=== PATIENT | female | born 1950 | race Caucasian/White ===

== ENCOUNTER 2021-12-30 11:17 | Outpatient (CLI) | payer MEDICARE, SELFPAY ==
[2021-12-30 22:22] LABS: Albumin* 4.3 g/dL (3.3-5.0); Chloride* 104 mmol/L (96-114)
[2021-12-30 22:23] LABS: Potassium* 4.3 mmol/L (3.6-5.1); Sodium* 139 mmol/L (135-149)
[2021-12-30 22:25] LABS: Alkaline Phosphatase* 41 U/L (40-150); Aspartate Amino Transferase* 24 U/L (12-35); Bilirubin Total* 0.5 mg/dL (0.1-1.5); Blood Urea Nitrogen* 8 mg/dL (7-30); Carbon Dioxide* 29 mmol/L (20-32); Cholesterol* 222 mg/dL (90-199); Creatinine* 0.6 mg/dL (0.5-1.5); Estimated Glomerular Filt Rate 95 ml/min; Total Protein* 6.7 g/dL (6.0-8.3)
[2021-12-30 22:26] LABS: Alanine Aminotransferase* 14 U/L (4-35); Calcium* 9.2 mg/dL (8.4-10.6); Glucose* 83 mg/dL (60-115); HDL Cholesterol* 84 mg/dL (>=50); LDL Cholesterol Calculated 122 mg/dL (<100); Triglycerides* 81 mg/dL (40-149)
[2021-12-30 23:05] LABS: Hepatitis C Virus Antibody* Negative (Negative)
== END 2021-12-30 11:18 | disposition home or self-care (01) ==
PROVIDERS: PCP Physician Assistant Medical; Visit Provider Family Medicine
DX: Z00.00 Encounter for general adult medical examination without abnormal findings (principal); Z13.6 Encounter for screening for cardiovascular disorders; F41.9 Anxiety disorder, unspecified; Z11.59 Encounter for screening for other viral diseases
CPT/HCPCS: 80053; 80061; 86803

== ENCOUNTER 2023-01-22 11:12 | Outpatient (CLI) | payer MEDICARE, SELFPAY | END 2023-01-22 11:13 | disposition home or self-care (01) | PROVIDERS: PCP Family Medicine; Visit Provider Family Medicine | DX: Z00.00 Encounter for general adult medical examination without abnormal findings (principal); Z13.6 Encounter for screening for cardiovascular disorders; Z11.59 Encounter for screening for other viral diseases | CPT/HCPCS: 80053; 80061; 86803 ==

== ENCOUNTER 2023-06-30 10:20 | Outpatient (CLI) | payer MEDICARE, SELFPAY | END 2023-06-30 10:21 | disposition home or self-care (01) | LOC: NFLDREF 07-01 07:11 | PROVIDERS: PCP Family Medicine; Referring Provider Family Medicine; Visit Provider Family Medicine | DX: R82.90 Unspecified abnormal findings in urine (principal) | CPT/HCPCS: 87086 ==

== ENCOUNTER 2023-08-11 11:15 | Outpatient (CLI) | payer MEDICARE, SELFPAY ==
--- NOTE | 2023-08-11 11:30 | MM_ITS ---
Patient: SANDHYA HERNANDEZ Facility:?[facility] Patient ID:?[id number] Site Patient ID:?[id number] Site :?[id number] Study:?XRay-Breast Bilateral 3D W/CAD-08/11/2023 11:43:38 AM Ordering Physician:Xin Banuelos Final Report: BILATERAL SCREENING MAMMOGRAM WITH COMPUTER-AIDED DETECTION AND TOMOSYNTHESIS TECHNIQUE: CC and MLO views were obtained. These mammographic images have been obtained using full-field digital technique. These mammographic images were interpreted with the benefit of computer-aided detection. Breast tomosynthesis was used in this interpretation. COMPARISON FILM: 08/06/22, 05/27/21, 12/16/19. FINDINGS: There are scattered areas of fibroglandular density. IMPRESSION: There is no radiographic evidence for malignancy. ASSESSMENT: BI-RADS Category 1: Negative RECOMMENDATION: Routine screening mammogram in 1 year. A lay language report of this examination will be provided to the patient. GREGORIA MUSA M.D. Diagnostic Radiologist [email or web address] [email or web address] Transcribed: 1:[address]/Dictated by: Gregoria Musa MD @ 08/11/2023 12:14:00 PM Signed by:?Gregoria Musa MD @08/11/2023 2:04:50 PM (Electronic Signature)
== END 2023-08-11 11:16 | disposition home or self-care (01) ==
LOC: MAMMO 11:16
PROVIDERS: PCP Family Medicine; Visit Provider Family Medicine
DX: Z12.31 Encounter for screening mammogram for malignant neoplasm of breast (principal)
CPT/HCPCS: 77063; 77067

== ENCOUNTER 2023-08-21 10:30 | Outpatient (CLI) | payer MEDICARE, SELFPAY ==
--- NOTE | 2023-08-21 11:00 | CRLHL7_ITS ---
For Patients: As a result of the Century Cures Act, medical imaging exams and procedure reports are released immediately into your electronic medical record. You may view this report before your referring provider. If you have questions, please contact your health care provider. Indication: Pleurodynia, 1 year back pain not improving. Lower right sided, possibly in rib Technique: CT Chest w/ 75cc Isovue-370 Please note that all CT scans at this facility use dose modulation, iterative reconstruction, and/or weight-based dosing when appropriate to reduce radiation dose to as low as reasonably achievable. Comparison: None Findings: Incidental punctate calcification within the spleen. Also incidental intrahepatic cysts. No calcified gallstones. No adrenal nodule. 4.5 cm hiatal hernia. No adenopathy in the mediastinum, ivan or axilla. No suspicious thyroid nodule. Calcified granuloma within the right upper lobe. Mild biapical pleural thickening. No pleural effusion. Dependent parenchymal densities noted. No suspicious pulmonary nodule. Intact ribcage. No vertebral body compression fracture. Impression: No fracture deformity. Moderate dependent scarring in both lung bases. This may be secondary to chronic reflux/aspiration as there is a 4.5 cm hiatal hernia. 4.5 cm hiatal hernia. Please note that all CT scans at this facility use dose modulation, iterative reconstruction, and/or weight-based dosing when appropriate to reduce radiation dose to as low as reasonably achievable. Dictated by Mahesh Rebolledo MD @ 08/21/2023 2:04:09 PM (Electronically Signed)
[2023-08-21 11:11] LABS: Creatinine* 0.7 mg/dL (0.5-1.5); Estimated Glomerular Filt Rate 91 ml/min
== END 2023-08-21 10:31 | disposition home or self-care (01) ==
PROVIDERS: PCP Family Medicine; Visit Provider Family Medicine
DX: R07.81 Pleurodynia (principal); K44.9 Diaphragmatic hernia without obstruction or gangrene; M85.80 Other specified disorders of bone density and structure, unspecified site
CPT/HCPCS: 36415; 71260; 82565; Q9967

== ENCOUNTER 2023-12-02 11:30 | Outpatient (RCR) | payer MEDICARE, SELFPAY ==
--- NOTE | 2023-09-29 12:36 | PT.OPE ---
[facility] PT [facility] Eval Start: 09/28/23 17:06 Freq: Status: Active Protocol: Document 09/29/23 10:25 LSL (Rec: 09/29/23 12:20 LSL [id number]) E-signed By Denise Brady PT Physical Therapy Outpatient Evaluation Insurance Information Insurance Name Medicare B,[employer] Insurance Information/Comments replacement plan PPO Medical Diagnosis chronic back pain Treating Diagnosis impaired ROM, pain, weakness Referring MD Vargas Subjective Subjective Pt. reports R thoracic pain for past 1.5+ years that is a constant ache and intermittently is a spasm and then it radiates downward. Activities that increase her pain are prolonged sitting, prolonged activities like crafting or working in the kitchen. Pt. likes to do jigsaw puzzles, crafting at the [employer]. She notices laying down on heat, using icy hot help decrease pain. I did do 3 sessions of yoga at the [employer] in the last month and that seems to have helped a little. I have noticed when I have diarrhea from IBS it can trigger some back pain and vice versa. PMH: Chest CT No fracture deformity, moderate dependent scarring in both lung bases. This may be secondary to chronic reflux/aspiration as there is a 4.5 cm hiatal hernia. 4.5 cm hiatal hernia. X-ray 05/14/23 Normal thoracic kyphosis. The vertebral body heights are maintained. The intervertebral disc spaces are preserved. Mild multilevel degenerative changes of the thoracic spine Pain Comments 07/07 average, 6 best Date of Last Physician Visit 09/25/23 Current Work Status Retired Precautions Weight Bearing Status Full Weight Bearing Therapy Limitations/Systems Review Not Limited Objective Range of Motion AROM - lumbar flexion 60%, B LF WNL, B rotation WNL, extension 60% with pain; thoracic B LF and rotation WNL with pain in R lower thoracic with L rotation Strength Cervical 5/5 throughout Shoulders - B hor abd 3+/5, B ER 4/5, B scaption 3+/5, lower trap R 3+/5, L 4-/5 Hips - R hip extension 4/5, L hip extension 4+/5 Trunk - extensors 4/5 in available ROM Palpation R thoracic paraspinals tight and tender, lower trap tight and tender, T7-10 CV joints tender Posture slight increase curvature at T -L junction Other/Pertinent Objective Joint Play - L rotation and extension both improved pain free movement with central and R lateral SNAG/MWM Assessment Assessment/Impression Pt. is a 73 y/o female who presents with R thoracic pain with spasm from T7-10 with underlying joint dysfunction . She will benefit from pt. education, therex to improve mobility and strength, NM re- ed and manual therapy to assist in decreased spasm and improved joint mobility. Primary Functional Limitations prolonged activity in front of her, prolonged sitting Plan of Care Rehabilitation Potential Excellent Physical Therapy Goals SHORT TERM GOALS:(3 weeks) 1. Pt. to report decreased average of pain to 2/10. 2. Pt. to report decreased frequency of spasm pain to less than 1x/day. 3. Pt. able to work on puzzle or kitchen task for 20 min without pain increase from baseline. CARE HOME GOALS: (6 weeks) 1. Pt. to report pain less than 2/10 during activities like putting a puzzle together , or working in the kitchen 2. Pt. able to independently manage her symptoms using tools she is educated in. 3. Pt. independent in HEP. Coordination/Communication With Referral Source Treatment Plan/Direct Interventions Joint Mobilization,Manual Therapy,Neuromuscular Re-ed, Self-Care/Home Management, Therapeutic Exercises Frequency/Duration 2x/week 6 weeks Patient Will Be Discharged From Therapy Completion of LTG(s),Skills Plateau,Independent w/HEP, Independently Progressing Evaluation Billing Untimed Code Treatment Minutes 35 Complexity Low Certification Information Initial Certification Date 09/29/23 Ending Certification Date 12/28/23 Provider Signature Required Yes Provider Signature Shows Agreement With POC & Medical Necessity Physician NPI Number Write NPI# Here Physician Comment/Change : Physician Signature & Date Requested Please Sign/Date Here
== END 2024-01-12 15:26 | disposition home or self-care (01) ==
PROVIDERS: PCP Family Medicine; Visit Provider Family Medicine
DX: M54.9 Dorsalgia, unspecified (principal); Z51.89 Encounter for other specified aftercare
CPT/HCPCS: 97110; 97140; 97161

== ENCOUNTER 2024-05-09 16:07 | Outpatient (CLI) | payer MEDICARE, SELFPAY | END 2024-05-09 16:08 | disposition home or self-care (01) | PROVIDERS: PCP Family Medicine; Visit Provider Family Medicine | DX: F41.9 Anxiety disorder, unspecified (principal); I47.10 Supraventricular tachycardia, unspecified; Z13.6 Encounter for screening for cardiovascular disorders | CPT/HCPCS: 80053; 80061 ==

== ENCOUNTER 2024-05-26 13:23 | Outpatient (CLI) | payer MEDICARE, SELFPAY | END 2024-05-26 13:24 | disposition home or self-care (01) | LOC: RAD 13:25 | PROVIDERS: PCP Family Medicine; Visit Provider Family Medicine | DX: M81.0 Age-related osteoporosis without current pathological fracture (principal); M85.89 Other specified disorders of bone density and structure, multiple sites | CPT/HCPCS: 77080 ==

== ENCOUNTER 2024-09-12 15:40 | Outpatient (CLI) | payer MEDICARE, SELFPAY | END 2024-09-12 15:41 | disposition home or self-care (01) | LOC: NFLDREF 09-16 01:26 | PROVIDERS: PCP Family Medicine; Referring Provider Family Medicine | DX: R30.0 Dysuria (principal); N39.0 Urinary tract infection, site not specified | CPT/HCPCS: 87086; 87186 ==

== ENCOUNTER 2024-09-29 10:01 | Outpatient (CLI) | payer MEDICARE, SELFPAY ==
--- NOTE | 2024-09-29 10:15 | CRLHL7_ITS ---
For Patients: As a result of the Century Cures Act, medical imaging exams and procedure reports are released immediately into your electronic medical record. You may view this report before your referring provider. If you have questions, please contact your health care provider. INDICATION: bilateral screening mammogram, asymptomatic 74 year old female COMPARISON: 08/11/2023, 08/06/2022, 05/27/2021 BY MAHESH MUSA PRIORS 08/11/2023, 08/06/2022, 05/27/2021 TECHNIQUE: Digital mammogram in CC and MLO projections including computer-aided detection (CAD) and tomosynthesis. BREAST COMPOSITION: There are scattered areas of fibroglandular density. FINDINGS: No suspicious findings. ASSESSMENT: BI-RADS 2 Benign RECOMMENDATION: Annual screening mammogram. A lay language report of this examination will be provided to the patient. Dictated by: Mahesh Musa MD @ 10/03/2024 09:46:54 (Electronically Signed)
== END 2024-09-29 10:02 | disposition home or self-care (01) ==
LOC: MAMMO 10:01
PROVIDERS: PCP Family Medicine; Visit Provider Family Medicine
DX: Z12.31 Encounter for screening mammogram for malignant neoplasm of breast (principal)
CPT/HCPCS: 77063; 77067

== ENCOUNTER 2024-09-29 14:35 | Outpatient (CLI) | payer MEDICARE, SELFPAY | END 2024-09-29 14:36 | disposition home or self-care (01) | PROVIDERS: PCP Family Medicine; Referring Provider Family Medicine; Visit Provider Nurse Practitioner Family | DX: N39.0 Urinary tract infection, site not specified (principal); Z12.31 Encounter for screening mammogram for malignant neoplasm of breast | CPT/HCPCS: 87086; 87186 ==

== ENCOUNTER 2024-11-11 19:00 | Outpatient (CLI) | payer MEDICARE, SELFPAY | END 2024-11-11 19:01 | disposition home or self-care (01) | LOC: NFLDREF 11-15 18:04 | PROVIDERS: PCP Family Medicine; Referring Provider Family Medicine; Visit Provider Nurse Practitioner Family | DX: R30.0 Dysuria (principal) | CPT/HCPCS: 87086 ==

== ENCOUNTER 2025-01-13 09:46 | Outpatient (CLI) | payer MEDICARE, SELFPAY ==
--- NOTE | 2025-01-13 10:15 | CRLHL7_ITS ---
For Patients: As a result of the Century Cures Act, medical imaging exams and procedure reports are released immediately into your electronic medical record. You may view this report before your referring provider. If you have questions, please contact your health care provider. INDICATION: Mid back pain. TECHNIQUE: Noncontrast sagittal T1, T2, STIR and axial GRE sequences are provided. No comparisons. FINDINGS: The overall stature, alignment and intrinsic marrow signal of the thoracic spine is within normal limits. Thoracic cord is normal. No suspicious disc bulges or protrusions. No suspicious central canal or foraminal narrowing. Multiple incidental nerve root sleeve diverticula seen within the mid and lower thoracic spine. IMPRESSION: Unremarkable MRI of the thoracic spine. Dictated by Krystian Malloy MD @ 01/13/2025 6:00:39 PM (Electronically Signed)
== END 2025-01-13 09:47 | disposition home or self-care (01) ==
LOC: MRI 09:47
PROVIDERS: PCP Family Medicine; Visit Provider Family Medicine
DX: M54.6 Pain in thoracic spine (principal)
CPT/HCPCS: 72146

== ENCOUNTER 2025-03-17 14:25 | Outpatient (CLI) | payer MEDICARE, SELFPAY | END 2025-03-17 14:26 | disposition home or self-care (01) | LOC: NFLDREF 03-23 04:45 | PROVIDERS: PCP Family Medicine; Referring Provider Family Medicine | DX: N30.00 Acute cystitis without hematuria (principal) | CPT/HCPCS: 87086 ==

== ENCOUNTER 2025-03-28 14:20 | Outpatient (CLI) | payer MEDICARE, SELFPAY | END 2025-03-28 14:21 | disposition home or self-care (01) | LOC: NFLDREF 04-03 17:42 | PROVIDERS: PCP Family Medicine; Referring Provider Family Medicine; Visit Provider Nurse Practitioner Family | DX: N30.01 Acute cystitis with hematuria (principal); B96.89 Other specified bacterial agents as the cause of diseases classified elsewhere | CPT/HCPCS: 87086 ==